=== PATIENT | female | born 1985 | race Caucasian/White ===

== ENCOUNTER 2025-04-06 10:58 | Emergency (ER) | payer OTHER, SELFPAY ==
[2025-04-06] VITALS (30 sets, daily range): BP systolic 142–178; BP diastolic 80–112; PULSE 90–100; RESP 18–20; TEMP 36.4; O2SAT 91–100
--- NOTE | ~2025-04-06 | CT_ITS ---
CLINICAL INDICATION: COMPARISON: . TECHNIQUE: Multiple contiguous axial images of the abdomen and pelvis were performed without the admi nistration of intravenous contrast The dose-length product (DLP) was 461.87 mGy-cm. Automated exposure control and iterative reconstruction technique were employed. FINDINGS/OBSERVATIONS: Visualized lower thorax: The bilateral lung bases are clear. The heart is of normal size, without pericardial effusion. Liver: The liver demonstrates homogeneous attenuation and is not enlarged. Gallbladder and biliary system: The gallbladder is only minimally distended, and otherwise unremarkable. Pancreas: Limited evaluation of the pancreas secondary to the lack of intravenous contrast. Spleen: The spleen demonstrates homogeneous attenuation and is not enlarged. Kidneys: Global enlargement of the left kidney with a left-sided hydroureteronephrosis extending to the left u reterovesical vesicular junction where a 5 mm stone is identified. The right kidney and ureter are unremarkable. Adrenal glands: Unremarkable. Gastrointestinal tract: Fecal stasis within the colon. Appendix: The air-filled appendix is of normal caliber (axial series, images 105 through 123). Vasculature: Unremarkable. Lymph nodes: No pathologically enlarged or morphologically suspicious lymph nodes within the retroperitoneum or at the root of the mesentery. Pelvic structures: The bladder is distended, and otherwise unremarkable. The uterus is anteverted and anteflexed, and otherwise unremarkable. Bilateral sterilization devices are present. Body wall and musculoskeletal: No significant degenerative disease within the lower thoracic or lumbosacral spine. IMPRESSION: Left-sided hydroureteronephrosis secondary to a 5 mm calculus at the left ureterovesicular junction. Reviewed, dictated and finalized at location A. IMPRESSION: Left-sided hydroureteronephrosis secondary to a 5 mm calculus at the left urete rovesicular junction.
--- NOTE | 2025-04-06 11:17 | ED.ABDPAIN ---
HPI - Abdominal Pain General Chief Complaint: Urogenital-Female Stated Complaint: abdominal pain Time Seen by Provider: 04/06/25 11:16 Source: patient Mode of arrival: ambulatory Limitations: no limitations History of Present Illness HPI narrative: 39-year-old female with a history of smoking, hypercalcemia, hyperparathyroidism, kidney stones presents to the ED with -- left lower abdominal pain/ left CVA angle pain since this morning. -- increased frequency of micturition with dysuria -- nausea and vomiting Patient is currently on menstrual periods. No fever or chills patient has a history of recurrent stones and is awaiting parathyroid surgery. MD elicited complaint: flank pain Pertinent past history: kidney stones Onset (ago): hour(s) ( 6 hours) Pain Consistency: constant Location: L flank Severity: severe Quality: aching Radiation: suprapubic Migration to: no migration Exacerbating factors: nothing Relieving factors: nothing Associated symptoms: nausea and vomiting Related Data Date of Last Menstrual Period: 04/04/25 Patient : No Allergies Allergy/AdvReac Type Severity Reaction Status Date / Time No Known Allergies Allergy Verified 04/06/25 11:30 Review of Systems Review of Systems: All systems reviewed & are unremarkable except as noted in HPI and below Constitutional: Constitutional: Reports as per HPI and Reports no additional constitutional complaints Eyes: Eyes: Reports as per HPI and Reports no additional eye complaints ENT: Reports system reviewed and no additional complaints, except as documented and Reports as per HPI Cardiovascular: Cardiovascular: Reports as per HPI and Reports no additional cardiovascular complaints Respiratory: Respiratory: Reports as per HPI and Reports no additional respiratory complaints Gastrointestinal: Gastrointestinal: Reports as per HPI, Reports no additional gastrointestinal complaints and Reports abdominal pain Genitourinary: Genitourinary: Reports no additional female genitourinary complaints Musculoskeletal: Musculoskeletal: Reports no additional musculoskeletal complaints and Reports as per HPI Integumentary/Breasts: Skin/Breast: Reports system reviewed and no additional complaints, except as docu and Reports as per HPI Neurologic: Reports system reviewed and no additional complaints, except as documented and Reports as per HPI Psychiatric: Psychiatric: Reports no additional psychiatric complaints and Reports as per HPI Endocrine: Endocrine: Reports no additional endocrine complaints and Reports as per HPI Hematologic/Lymphatic: Hematologic/Lymphatic: Reports no additional hematologic/lymphatic complaints and Reports as per HPI Allergic/Immunologic: Allergic/Immunologic: Reports no additional allergic/immunologic complaints and Reports as per HPI [facility] Social History Social History Smoking status: Current every day smoker Exam Narrative: blood pressure 178/112. Afebrile Const: General: ill appearing Orientation/consciousness: patient oriented x3 Limitations: no limitations HENMT: Head: normal to inspection Ears: external ears normal Face/Nose/Sinus: Normal external nose present Face and sinus: normal facial exam Mouth: Yes Normal oral and palatal mucosa present Throat: posterior oropharynx normal Eyes: Conjunctivae: conjunctivae normal Pupils: Equal, round and reactive pupils present EOM: EOMs intact bilaterally Direct Ophthalmoscopy: no photophobia Neck: Neck: normal visual inspection, no lymphadenopathy and no meningeal signs Chest: Chest palpation & inspection: normal inspection of the chest Resp: Effort & Inspection: normal respiratory effort Auscultation: clear to auscultation bilaterally Cardio: Rate: regular rate Rhythm: regular rhythm GI: GI Palp: Yes Soft to palpation Auscultation: normal bowel sounds Other: tenderness over the left flank and left CVA angle : General: Yes CVA tenderness Back/Spine/Pelvis: Back: CVA tenderness Skin: General skin exam: normal color Rashes: no rashes Wounds: no wounds Neuro: General: patient oriented x3, moves all extremities, no meningeal signs, no focal motor deficits and CN's II-XI intact bilaterally Cranial nerves: Yes Nystagmus not present Speech: normal speech Gait exam (Neuro): Normal gait present Extrem: General: normal to inspection and no clubbing, cyanosis or edema Psych: Mental Status: mental status grossly normal Affect: normal affect Attitude: cooperative Course Course Emergency Course: left flank pain-- patient has pain in the left flank and the left CVA angle. UA revealed a positive nitrate without leukocyte esterase or white cells. Patient had a CT of the abdomen and pelvis which revealed a 5 mm stone at the ureterovesical junction with left hydroureteronephrosis. discussed with urologist Dr. Rodriguez-- who agree to see the patient for follow-up. No emergent treatment necessary other than medical management. Will discharge the patient home on [place], Flomax and antibiotics. Hyperparathyroidism-- awaiting surgery Vital Signs Vital signs: Vital Signs Temperature 36.4 C 04/06/25 10:58 Pulse Rate 90 04/06/25 10:58 Respiratory Rate 18 04/06/25 10:58 Blood Pressure 178/112 H 04/06/25 10:58 Pulse Oximetry 99 04/06/25 10:58 Oxygen Delivery Room Air 04/06/25 10:58 Temperature 36.4 C 04/06/25 10:58 Pulse Rate 90 04/06/25 10:58 Respiratory Rate 18 04/06/25 10:58 Blood Pressure 178/112 H 04/06/25 10:58 Pulse Oximetry 99 04/06/25 10:58 Oxygen Delivery Room Air 04/06/25 10:58 MDM - Abdominal Pain MDM Narrative Medical decision making narrative: Left flank pain left ureteric stone hyperparathyroidism Differential Diagnosis Differential diagnosis: Likely diverticulitis Medical Records Attestation: I reviewed the patient's medical records. Lab Data Attestation: I reviewed the patient's lab results. 04/06/25 11:35 04/06/25 11:35 Labs: Lab Results 04/06/25 04/06/25 04/06/25 Range/Units 11:23 11:35 14:26 WBC 21.2 H (4.8-10.8) K/mm3 RBC 5.15 (4.20-5.40) M/mm3 Hgb 15.2 H (12.0-15.0) g/dL Hct 46.9 (35.0-49.0) % MCV 91.1 (78.0-102.0) fL MCH 29.5 (27.0-31.0) pg MCHC 32.4 (32-36) g/dL RDW 12.7 (11.6-14.4) % Plt Count 387 (150-420) K/mm3 MPV 10.2 (9.2-11.8) fl Immature Gran % (Auto) 0.6 H (0.0-0.0) % Neut % (Auto) 86.8 H (50.0-70.0) % Lymph % (Auto) 8.2 L (18.0-42.0) % [place] % (Auto) 4.0 (2.0-11.0) % Eos % (Auto) 0.1 L (1.0-6.0) % Baso % (Auto) 0.3 (0.0-1.0) % Lymph # (Auto) 1.74 (1.10-4.50) K/mm3 [place] # (Auto) 0.85 (0.10-0.90) K/mm3 Eos # (Auto) 0.02 (0.02-0.50) K/mm3 Baso # (Auto) 0.07 (0.00-0.10) K/mm3 Abs Immat Gran (auto) 0.12 H (0.00-0.00) K/mm3 Absolute Neuts (auto) 18.36 H (1.70-7.20) K/mm3 Absolute Nucleated RBC 0.00 (0.00-0.00) K/mm3 Total Counted 100 Neutrophils % (Manual) 85 H (46-73) % Band Neutrophils % Not Reportable Lymphocytes % (Manual) 10 L (18-44) % Monocytes % (Manual) 5 (3-9) % Nucleated RBC % 0.0 (0-0.0) % Abs Lymphs (Manual) 2.12 (1.1-4.5) K/mm3 Abs Monocytes (Manual) 1.06 H (0.1-0.90) K/mm3 Platelet Estimate Adequate (Adequate) Schistocytes None seen Sodium 141 (137-145) mmol/L Potassium 4.3 (3.4-5.0) mmol/L Chloride 109 H (98-107) mmol/L Carbon Dioxide 25 (22-30) mmol/L Anion Gap 7 (4-12) mmol/L BUN 12 (7-17) mg/dL Creatinine 0.65 L (0.7-1.0) mg/dL Estim Creat Clear Calc 97 ml/min Estimated GFR > 60 (59 - ) Glucose 134 H (65-110) mg/dL Calculated Osmolality 293 (285-295) mOsm/kg Lactic Acid 2.1 H 1.9 (0.4-2.0) mmol/L Calcium 11.4 H (8.4-10.2) mg/dL Total Bilirubin 0.8 (0.2-1.3) mg/dL AST 30 (14-36) U/L ALT 31 (6-35) U/L Alkaline Phosphatase 126 (38-126) U/L Total Protein 7.7 (6.3-8.2) g/dL Albumin 4.5 (3.5-5.1) g/dL Lipase 21 L (23-300) U/L Urine Color Red A (Yellow) Urine Appearance Cloudy A (Clear) Urine pH 6.0 (5.0-8.0) Ur Specific [place] >= 1.030 H (1.010-1.020) Urine Protein 2+ H (Negative) Urine Glucose (UA) Negative (Negative) Urine Ketones Negative (Negative) Ur Blood (Man) 2+ H (Negative) Urine Nitrate Positive H (Negative) Urine Bilirubin Negative (Negative) Urine Urobilinogen 0.2 (0.2-1.0) mg/dL Leukocyte Esterase Rfl Negative (Negative) MARVIN/UL Urine RBC 6-10 H (0-2) /hpf Urine WBC 0-3 (0-3) /hpf Ur Squamous Epith Cells Few (Few) /hpf Urine Bacteria Unable to determine (None) /hpf Ur Oval Fat Bodies None (None) /lpf Urine Test Negative Imaging Data Radiologist's impression: ITS Impressions Abdomen/Pelvis CT 04/06/25 13:21 IMPRESSION: Left-sided hydroureteronephrosis secondary to a 5 mm calculus at the left ureterovesicular junction. Discharge Plan Discharge Clinical Impression: Calculus of distal ureter, Hypercalcemia Patient Disposition: Home Condition: Stable Instructions: Antibiotic Form, Kidney Stones (ED) Patient Language: Algerian Prescriptions: New tamsulosin [Flomax] 0.4 mg capsule 0.4 mg PO DAILY Qty: 7 0RF hydrocodone-acetaminophen 5-325 mg tablet 1 tablet PO Q6H PRN (Reason: pain) Qty: 14 0RF ciprofloxacin HCl [Cipro] 250 mg tablet 250 mg PO Q12H Qty: 10 0RF tamsulosin [Flomax] 0.4 mg capsule 0.4 mg PO DAILY Qty: 7 0RF hydrocodone-acetaminophen 5-325 mg tablet 1 tablet PO Q6H PRN (Reason: pain) Qty: 14 0RF Follow-up/Referrals: Alessandro Hook MD [Primary Care Provider] - Time of Disposition: 14:55
[2025-04-06] MEDS: LACTATED RINGERS 1,000 ML 999 ML IV CONT (11:30)
[2025-04-06] MEDS: HYDROmorphone HCL INJ (*CRX) 2 MG/ML VIAL 0.5 MG IV PUSH (11:31)
[2025-04-06] MEDS: ONDANSETRON INJ 4 MG/2 ML VIAL IV PUSH (11:32)
[2025-04-06 11:45] LABS: Add Urine Microscopic? YES; Glucose Urine UA Negative (Negative); Leukocyte Esterase Ur Negative LEU/UL (Negative); Nitrate Urine Positive (Negative); Specific Grav Ur >= 1.030 (1.010-1.020)
[2025-04-06 11:53] LABS: Appearance Urine Cloudy (Clear)
[2025-04-06 11:55] LABS: Pregnancy On Board Control Positive
[2025-04-06 12:00] LABS: Lipase 21 U/L (23-300)
[2025-04-06 12:01] LABS: Alanine Aminotransferase 31 U/L (6-35); Albumin Level 4.5 g/dL (3.5-5.1); Alkaline Phosphatase 126 U/L (38-126); Anion Gap 7 mmol/L (4-12); Aspartate Amino Transferase 30 U/L (14-36); Bilirubin,Total 0.8 mg/dL (0.2-1.3); Blood Urea Nitrogen 12 mg/dL (7-17); Calcium 11.4 mg/dL (8.4-10.2); Carbon Dioxide 25 mmol/L (22-30); Chloride 109 mmol/L (98-107); Estimated CRCL calculation 97 ml/min; Estimated Glomerular Filt Rate > 60; Glucose 134 mg/dL (65-110); Osmolality Calculated 293 mOsm/kg (285-295); Potassium 4.3 mmol/L (3.4-5.0); Sodium 141 mmol/L (137-145); Total Protein 7.7 g/dL (6.3-8.2)
[2025-04-06 12:02] LABS: Hematocrit 46.9 % (35.0-49.0); Hemoglobin 15.2 g/dL (12.0-15.0); Immature Granulocyte Percent A 0.6 % (0.0-0.0); Lymphocytes Absolute Auto 1.74 K/mm3 (1.10-4.50); Mean Corpuscular HGB Conc 32.4 g/dL (32-36); Mean Corpuscular Hemoglobin 29.5 pg (27.0-31.0); Mean Corpuscular Volume 91.1 fL (78.0-102.0); Nucleated Red Blood Cells Absolute Auto 0.00 K/mm3 (0.00-0.00); Nucleated Red Blood Cells Perc 0.0 % (0-0.0); Platelet Count Result 387 K/mm3 (150-420); Red Blood Count 5.15 M/mm3 (4.20-5.40); White Blood Count 21.2 K/mm3 (4.8-10.8)
[2025-04-06 12:09] LABS: Total Cells Counted 100
[2025-04-06 12:10] LABS: Lymphocytes Absolute Manual 2.12 K/mm3 (1.1-4.5); Lymphocytes Percent Manual 10 % (18-44); Monocytes Absolute Manual 1.06 K/mm3 (0.1-0.90); Monocytes Percent Manual 5 % (3-9); Neutrophils Percent Manual 85 % (46-73); Schistocytes None Seen
[2025-04-06] MEDS: levoFLOXacin 500 MG/D5W 100 ML 500 MG/100 ML BAG 100 MG IVPB (12:30)
[2025-04-06] MEDS: KETOROLAC 30 MG/ML VIAL (*BKC) IV PUSH (14:20)
[2025-04-06] MEDS: TAMSULOSIN HCL 0.4 MG CAPSULE PO (14:22)
--- NOTE | 2025-04-09 13:10 | PC.NURSE ---
Final urine culture report; no growth Preliminary blood culture report; no growth detected at this time.
--- NOTE | 2025-04-10 12:32 | PC.NURSE ---
preliminary blood culture reviewed. no growth in 24 hours
--- NOTE | 2025-04-11 14:44 | PC.NURSE ---
preliminary blood culture reviewed. no growth in 48 hours
--- NOTE | 2025-04-14 12:58 | PC.NURSE ---
FINAL BLOOD CULTURE REPORT; NO GROWTH IN 5 DAYS
== END 2025-04-06 15:09 | disposition home or self-care (01) ==
PROVIDERS: Emergency Provider Internal Medicine Critical Care Medicine; PCP Family Medicine
DX: N20.1 Calculus of ureter (principal); E83.52 Hypercalcemia; F17.200 Nicotine dependence, unspecified, uncomplicated
CPT/HCPCS: 36415; 74176; 80053; 81001; 81025; 83605; 83690; 85025; 87040; 87086; 96365; 96375; 99284; A9270; J1171; J1885; J1956; J2405; J7120